=== PATIENT | male | born 1975 | race Caucasian/White ===

== ENCOUNTER 2020-01-12 18:30 | Inpatient (IN) | payer MEDICAID ==
[~2020-01-12] VITALS: Ht 182.9 cm; Wt 105.7 kg
--- NOTE | ~2020-01-12 | CON ---
[address] [address] CONSULTATION Name: FIDEL MARSHALL Room: [address] M.R.#: [id number] Admission: 01/12/20 Attend Phys: Jessica Colbert Discharge: 01/15/20 Date of : 77 Report #: [id number] THIS REPORT FOR: //name// cc: [facility] - [facility] physician unknown [facility] - Clinic physician unknown ~ THIS REPORT FOR: //name// CC: SAKINA unknown Jessica Goyal MD [facility] REFERRING PHYSICIAN: Jessica Goyal MD REASON FOR CONSULTATION: Alcoholic liver disease. IMPRESSION: 1. Alcoholic hepatitis, superimposed on alcoholic cirrhosis with a discriminant function score of 34 and a MELD of 18 with mild hepatic encephalopathy -- the patient needs steroids to decrease the risk of mortality. 2. Decompensated liver disease secondary to chronic alcohol abuse with associated ascites and encephalopathy. 3. Pancytopenia secondary to hypersplenism secondary to #1. 4. Relapsing alcohol abuse with the patient stating that he had been sober for over 160 days until a relapse with signs and symptoms of alcohol withdrawal at this time. RECOMMENDATIONS: 1. We will begin the patient on prednisolone 40 mg once daily for the next 28 days and then decrease the dose by 10 mg every 4 days until he gets to 10 mg then decrease by 5 mg every third today for 16-ryann taper. 2. We will request records from [facility] including upper and lower endoscopies performed in October of this year and discharge from 07/2019 as well. 3. We will schedule the patient for CT scan of the abdomen and pelvis with oral and IV contrast to evaluate his liver in the presence or absence of ascites. 4. Alcohol withdrawal precautions. 5. Alcohol rehab upon discharge. 6. Dementia. Follow up at [facility] for both primary care and GI care. HISTORY OF PRESENT ILLNESS: The patient is a 44-year-old white male with decompensated liver disease secondary to alcohol abuse, who was admitted to the hospital because of alcohol withdrawal. We are asked to see and to evaluate the status of his liver disease and make recommendations regarding his care. He presented to the Emergency Room on the with alcohol intoxication as well as a fall and was intoxicated at the time of admission. [place] [address] CONSULTATION Name: FIEDL MARSHALL Room: [address] IN [facility].#: [id number] Admission: 01/12/20 Attend Phys: Jessica Colbert Discharge: 01/15/20 Date of : 77 Report #: [id number] aron 3 weeks ago when he got drunk and he was drinking excessive amount of alcohol, mostly beer. He had bruises over his face and arms because of the fall and swelling in his abdomen. He has a history of decompensated liver disease secondary to alcohol and was hospitalized back in 07/2019 by his report at [facility] and underwent upper and lower endoscopies earlier this year for unclear reasons. He states that nothing was found on any of these examinations. We did not have any of those records regarding the same. He is admitted to the hospital here with alcohol intoxication, alcohol withdrawal. The patient is a good historian at this point in time and appears to be fairly coherent. Does have some slowness of his thought processes. He denies any complaints of any dysphagia, odynophagia, postprandial pain or any problem with black stools, tarry stools or any blood in the stools. He has not had any abdominal pain. He has been on diuretics in the past and has not been on it recently because he quit drinking for over 160 days. He has never had a liver biopsy, but has had history of ascites and peripheral edema for which he was on diuretics. The patient states he underwent upper and lower endoscopy back in October of this year at [facility] and those records are being requested. He is currently going through withdrawal and is anxious to get out of the hospital and get back on the wagon. ALLERGIES: None. MEDICATIONS: Include amlodipine, clonidine, folic acid, thiamine, lactulose, and Xanax. PAST MEDICAL AND SURGICAL HISTORY: Remarkable for underlying hypertension. He has decompensated liver disease secondary to alcohol abuse, history of alcohol with family history of the same as well, has also a family history of substance abuse. He has no history of hepatitis A, B, or C. SOCIAL HISTORY: The patient has a girlfriend. He does not smoke. He drinks on a daily basis and has done so for years. FAMILY HISTORY: Remarkable for alcohol abuse, substance abuse. PHYSICAL EXAMINATION: GENERAL: Revealed an ill-appearing 44-year-old gentleman who is awake and alert. CARDIOPULMONARY: Revealed a regular rate and rhythm. LUNGS: Clear. ABDOMEN: Soft and not tender. He does have possibly some ascites, but is not particularly impressive. He does have peripheral edema. He has no asterixis. LABORATORY TESTS: Revealed white count 3.4, hemoglobin 13.1, [place] [address] CONSULTATION Name: FIDEL MARSHALL Room: [address] IN [facility].#: [id number] Admission: 01/12/20 Attend Phys: Jessica de oliveira wilbur Carlos Discharge: 01/15/20 Date of : 77 Report #: [id number] 29,000, MCV is 97.6, and RDW is 18.4. His sodium is 127, potassium 4.0, chloride 90, bicarbonate is 32, BUN 5, creatinine 0.9. Total bilirubin 4.1, alkaline phosphatase 207, AST 212, ALT 70, albumin of only 2.4. His protime on admission was 18.0 with an INR of 1.8. DISCUSSION: 1. At the present time, the patient has a discriminant function score of 34 with some mild encephalopathy. As such, he avoids the use of steroids. We will begin him on methylprednisolone or prednisolone 40 mg once daily and then he will need to be tapered over after 28 days as I mentioned above. 2. We will request records from [facility] in regards to the same. I have discussed the plans with the patient as well and the patient agreeable to the same. By: [id number] Rajan DO /kamla
[2020-01-12 18:41] VITALS: BP 168/97
[2020-01-12] MEDS ORDERED: NORVASC5 MG PO (18:49)
[2020-01-12] MEDS ORDERED: CLONIDINE HCL0.2 M2 PO (18:49)
[2020-01-12] MEDS ORDERED: VITAMIN B-1100 M2 PO (18:50)
[2020-01-12] MEDS ORDERED: LACTULOSE PO (18:50)
[2020-01-12] MEDS ORDERED: XANAX XR1 MG PO (18:50)
[2020-01-12] MEDS ORDERED: FOLIC ACID1 MG PO (18:50)
[2020-01-12 19:21] LABS: ABSOLUTE LYMPHOCYTES 0.7 thou/uL (0.8-5.3); ABSOLUTE MONOCYTES 0.6 thou/uL (0.0-1.2); BASOPHILS 0.7 %; HEMATOCRIT 36.6 % (42.0-52.0); HEMOGLOBIN 13.1 gm/dL (14.0-18.0); LYMPHOCYTES 20.2 %; MCH 34.9 pg (26.0-34.0); MCHC 35.8 g/dL (28.0-37.0); MCV 97.6 fL (80.0-100.0); MONOCYTES 18.3 %; MPV 8.1 fl. (7.2-11.1); NUCLEATED RBCS 0 /100WBC; POLYS 59.8 %; RBC 3.76 mil/uL (4.50-6.00); RDW-CV 18.4 % (10.5-14.5); WBC 3.4 thou/uL (4.0-11.0)
[2020-01-12 19:28] LABS: CALCIUM 7.5 mg/dL (8.5-10.1); CREATININE 0.9 mg/dL (0.6-1.3)
[2020-01-12 19:29] LABS: APTT 32.8 Seconds (25.0-31.3); INR 1.8
[2020-01-12 19:33] LABS: ALBUMIN 2.4 g/dL (3.4-5.0); TOTAL BILIRUBIN 4.1 mg/dL (<0.1-1.0); TOTAL PROTEIN 6.8 g/dL (6.4-8.2)
[2020-01-12 19:48] LABS: URINE BILIRUBIN 2+ (Negative); URINE BLOOD 3+ (Negative); URINE CLARITY CLEAR; URINE COLOR YELLOW; URINE GLUCOSE-RANDOM 2+ (Negative); URINE KETONES TRACE (Negative); URINE LEUKOCYTES-REFLEX NEGATIVE (Negative); URINE NITRITE-REFLEX NEGATIVE (Negative); URINE PROTEIN 3+ (Negative); URINE SPECIFIC GRAVITY 1.015 (1.005-1.030)
[2020-01-12 19:50] LABS: ICTOTEST (BILI CONFIRMATORY) Positive (Negative)
[2020-01-12 20:15] LABS: BACTERIA-REFLEX 1-9 Few /HPF (None Seen); HYALINE CASTS 0-3 Few /LPF (None Seen); SQUAMOUS 0-3 Few /LPF (0-3); URINE WBC-REFLEX 0-5 Rare /HPF (0-5)
[2020-01-12 20:16] LABS: CRYSTALS None Seen /LPF (None Seen)
[2020-01-12 20:55] LABS: PLATELET ESTIMATE DECREASED
[2020-01-12 20:56] LABS: PLATELET COUNT* 29 thou/uL (150-400)
[2020-01-12 22:31] VITALS: BP 180/89
[2020-01-13] VITALS: BP 135/68
[2020-01-13 03:45] VITALS: BP 148/64
[2020-01-13 04:25] LABS: HEMATOCRIT 35.4 % (42.0-52.0); HEMOGLOBIN 12.7 gm/dL (14.0-18.0); MCH 35.5 pg (26.0-34.0); MCV 98.6 fL (80.0-100.0); MPV 7.3 fl. (7.2-11.1); RBC 3.59 mil/uL (4.50-6.00); RDW-CV 18.6 % (10.5-14.5); WBC 2.3 thou/uL (4.0-11.0)
[2020-01-13 04:46] LABS: ALBUMIN 2.2 g/dL (3.4-5.0); ALKALINE PHOSPHATASE 209 U/L (46-116); ANION GAP 6 mmol/L (7-16); BUN 4 mg/dL (7-18); CALCIUM 7.5 mg/dL (8.5-10.1); CHLORIDE 98 mmol/L (98-107); CHOLESTEROL 137 mg/dL (<200); CO2 31 mmol/L (21-32); CREATININE 0.8 mg/dL (0.6-1.3); GLUCOSE 312 mg/dL (70-99); HDL CHOLESTEROL 15 mg/dL (>40); LDL CHOLESTEROL 63 mg/dL (<100); MAGNESIUM 1.8 mg/dL (1.8-2.4); POTASSIUM 4.1 mmol/L (3.5-5.1); SGOT 189 U/L (15-37); SGPT 57 U/L (30-65); TC:HDL 9.1 Ratio (Not establshd); TOTAL BILIRUBIN 3.4 mg/dL (<0.1-1.0); TOTAL PROTEIN 6.4 g/dL (6.4-8.2); TRIGLYCERIDE 296 mg/dL (<150); VLDL 59 mg/dL (<40)
[2020-01-13 04:49] LABS: SODIUM 135 mmol/L (136-145)
[2020-01-13 05:56] LABS: SERUM ASSESSMENT CLEAR
[2020-01-13 08:00] VITALS: BP 152/87
--- NOTE | 2020-01-13 09:53 | EKG ---
[place] [address] ELECTROCARDIOGRAM REPORT Name: FIDEL MARSHALL Room: [address] ADM IN [facility]#: [id number] Admission: 01/12/20 Attend Phys: Jessica medrano Sa Discharge: Date of : 77 Date of Service: 01/12/201911 Report #: [id number] THIS REPORT FOR: //name// [facility] ED Test Date: 2020-01-12 Test Time: 19:12:45 Pat Name: FIDEL MARSHALL Department: Room: [facility] Gender: M [employer]: BLOSSOM : 1975 Requested By: Gary Coyle Order Number: [id number] MD: Uday Jack Measurements Intervals Sullivan Rate: 105 P: 52 LA: 118 QRS: -40 QRSD: 97 T: 51 QT: 340 QTc: 450 Interpretive Statements Sinus tachycardia Left axis deviation RSR' in V1 or V2, probably normal variant Baseline wander in lead(s) V3,V4,V5 No previous ECG available for comparison Electronically Signed On 01-13-2020 9:52:33 CDT by Uday Jack [email or web address] <ELECTRONICALLY SIGNED> By: Uday Jack MD, FACC 01/13/20 0952 11 11 Uday Jack MD, FACC /EPI
[2020-01-13 12:38] VITALS: BP 193/93
[2020-01-13 13:40] LABS: HEMATOCRIT 38.4 % (42.0-52.0); HEMOGLOBIN 13.7 gm/dL (14.0-18.0); MCHC 35.7 g/dL (28.0-37.0); MPV 8.5 fl. (7.2-11.1); RBC 3.92 mil/uL (4.50-6.00); RDW-CV 18.3 % (10.5-14.5); WBC 2.5 thou/uL (4.0-11.0)
[2020-01-13 14:07] LABS: HEPATITIS B SURFACE AG Negative (Negative); HIV-1/HIV-2 ANTIBODY Non Reactive (Non Reactive)
[2020-01-13 16:00] VITALS: BP 179/93
[2020-01-13 20:00] VITALS: BP 170/85
[2020-01-13 23:07] LABS: GLYCOHEMOGLOBIN (HGB A1C) 6.9 % (4.8-5.6)
[2020-01-14] VITALS (7 sets, daily range): BP systolic 139–185; BP diastolic 70–87
[2020-01-14 04:35] LABS: HEMATOCRIT 37.2 % (42.0-52.0); HEMOGLOBIN 13.2 gm/dL (14.0-18.0); MCH 34.7 pg (26.0-34.0); MCHC 35.4 g/dL (28.0-37.0); MCV 97.9 fL (80.0-100.0); MPV 7.8 fl. (7.2-11.1); RBC 3.79 mil/uL (4.50-6.00); RDW-CV 18.3 % (10.5-14.5)
[2020-01-14 04:53] LABS: ALBUMIN 2.3 g/dL (3.4-5.0); CALCIUM 7.9 mg/dL (8.5-10.1); CREATININE 0.7 mg/dL (0.6-1.3); MAGNESIUM 1.8 mg/dL (1.8-2.4); POTASSIUM 4.4 mmol/L (3.5-5.1); TOTAL BILIRUBIN 5.5 mg/dL (<0.1-1.0); TOTAL PROTEIN 6.8 g/dL (6.4-8.2)
[2020-01-14 05:20] LABS: INR 1.9; PROTIME 19.1 Seconds (9.20-11.50)
[2020-01-15] VITALS: BP 144/71
[2020-01-15 04:00] VITALS: BP 141/68
[2020-01-15 05:02] LABS: HEMOGLOBIN 12.2 gm/dL (14.0-18.0); MCH 35.6 pg (26.0-34.0); MCHC 35.9 g/dL (28.0-37.0); MCV 99.3 fL (80.0-100.0); MPV 8.2 fl. (7.2-11.1); RBC 3.43 mil/uL (4.50-6.00); RDW-CV 18.4 % (10.5-14.5); WBC 2.6 thou/uL (4.0-11.0)
[2020-01-15 05:07] LABS: INR 1.9; PROTIME 19.4 Seconds (9.20-11.50)
[2020-01-15 05:14] LABS: ALBUMIN 1.9 g/dL (3.4-5.0); CALCIUM 7.4 mg/dL (8.5-10.1); CREATININE 0.7 mg/dL (0.6-1.3); MAGNESIUM 1.7 mg/dL (1.8-2.4); POTASSIUM 4.2 mmol/L (3.5-5.1); TOTAL BILIRUBIN 4.1 mg/dL (<0.1-1.0); TOTAL PROTEIN 5.7 g/dL (6.4-8.2)
[2020-01-15 08:00] VITALS: BP 165/87
[2020-01-15] MEDS ORDERED: AUGMENTIN 875-1 EACH PO (08:04)
[2020-01-15] MEDS ORDERED: OMEPRAZOLE40 MG PO (08:04)
[2020-01-15] MEDS ORDERED: ORAPRED15 MG/5 ML PO (08:06)
[2020-01-15] MEDS ORDERED: AMARYL4 MG PO (08:09)
[2020-01-15 11:17] VITALS: BP 165/87
== END 2020-01-15 12:24 | disposition home or self-care (01) | DRG 432 ==
LOC: M.ERS 18:30 → M.2W 20:31 → M.TBA-ER 20:31 → M.2W 23:27
PROVIDERS: Emergency Medicine Emergency Medical Services; Internal Medicine; Internal Medicine Gastroenterology; ADMIT Family Medicine
DX: K70.10 Alcoholic hepatitis without ascites (principal); J69.0 Pneumonitis due to inhalation of food and vomit; E43 Unspecified severe protein-calorie malnutrition; D61.818 Other pancytopenia; E87.1 Hypo-osmolality and hyponatremia; F10.129 Alcohol abuse with intoxication, unspecified; Y90.9 Presence of alcohol in blood, level not specified; I10 Essential (primary) hypertension; Z79.899 Other long term (current) drug therapy; K70.30 Alcoholic cirrhosis of liver without ascites; D73.1 Hypersplenism; K72.90 Hepatic failure, unspecified without coma; Z82.49 Family history of ischemic heart disease and other diseases of the circulatory system; F17.200 Nicotine dependence, unspecified, uncomplicated; Z68.31 Body mass index [BMI] 31.0-31.9, adult; E11.65 Type 2 diabetes mellitus with hyperglycemia; F41.1 Generalized anxiety disorder